=== PATIENT | female | born 1935 | race Caucasian/White ===

== ENCOUNTER 2019-09-01 23:13 | Inpatient (IN) ==
--- NOTE | 2019-09-02 01:19 | EKG Report ---
Test Performed on : 09/01/2019 11:22:51 PM Test Reason : ams Blood Pressure : / mmHG Vent. Rate : 075 BPM Atrial Rate : 075 BPM P-R Int : 202 ms QRS Dur : 130 ms QT Int : 406 ms P-R-T Axes : 056 069 046 degrees QTc Int : 453 ms Sinus rhythm. with premature atrial complexes. Right bundle branch block Abnormal ECG When compared with ECG of 31-AUG-2019 13:09, (Unconfirmed) No significant change was found Unconfirmed Result
[2019-09-02 01:30] LABS: BASO# 0.04 X1000 (0.0-0.2); BASO% 0.3 % (0.0-0.8); EOS# 0.12 X1000 (0.0-0.7); HEMATOCRIT 38.6 % (37.0-47.0); HEMOGLOBIN 13.1 g/dL (12.0-16.0); IMM GRAN# 0.04 X1000 (0.0-0.04); IMM GRAN% 0.3 % (0.0-0.5); LYMPH# 1.45 X1000 (1.2-3.4); LYMPH% 11.5 % (20.5-51.1); MCH 27.2 PG (27-31); MCHC 33.9 g/dL (33-37); MCV 80.1 FL (81-99); MONO# 0.74 X1000 (0.11-0.59); MONO% 5.9 % (1.7-9.3); MPV 8.6 FL (7.4-10.4); NEUT# 10.22 X1000 (1.4-6.5); PLT 338 X1000 (130-400); RBC 4.82 XMIL (4.2-5.4); RDW 14.5 % (11.5-14.5); WBC 12.61 X1000 (4.8-10.8)
--- NOTE | 2019-09-02 01:33 | PROVIDER DOCUMENTATION ---
This chart was entered by Qian Lyons Scribe, acting as scribe for Tiara Montemayor MD. HPI-General Adult - General Chief Complaint: Stroke-Like Symptoms Stated Complaint: HIGH B/P, SLURRED SPEECH (DX'D WITH TIA YEST) Time Seen by Provider: 09/02/19 00:27 Source: patient, family () Allergies/Adverse Reactions: Patient Allergies Allergy/AdvReac Type Severity Reaction Status Date / Time No Known Allergies Allergy Verified 09/02/19 00:53 Home Medications: Home Medication List Medication Instructions Recorded Confirmed Last Taken Type Calcium Citrate/Vitamin D 1 each PO DAILY 09/05/13 09/02/19 1 Day Ago History [Citracal + D] ~08/30/19 Exenatide Microspheres [Bydureon] 2 mg SQ EDGAR 09/05/13 09/02/19 08/27/19 History Glucosamine 500 mg PO DAILY 09/05/13 09/02/19 1 Day Ago History ~08/30/19 Metformin [Glucophage] 1,000 mg PO BID 09/05/13 09/02/19 08/31/19 History Multivit-Min/FA/Lycopene/Lut 1 each PO DAILY 09/05/13 09/02/19 1 Day Ago History [Centrum Silver Tablet] ~08/30/19 Cetirizine [Zyrtec] 10 mg PO DAILY 10/02/13 09/02/19 08/31/19 History Alendronate Sodium 70 mg PO DIRECTED 08/31/19 09/02/19 08/27/19 History Anastrozole 1 mg PO QHS 08/31/19 09/02/19 1 Day Ago History ~08/30/19 Apixaban [Eliquis] 5 mg PO BID 08/31/19 09/02/19 08/31/19 History Clonidine HCl 0.1 mg PO BID #60 tab 08/31/19 09/02/19 Unknown Rx ENALApril [Vasotec] 5 mg PO BID 08/31/19 09/02/19 08/31/19 History Metoprolol Succinate E.r. [Toprol 100 mg PO BID 08/31/19 09/02/19 08/31/19 History Xl] - History of Present Illness -Gen Adult Nature of Presenting Problems: Pt is an 84 yowf brought into the ED today after her B/P has gone up and down for several days. Pt was seen in the ED yesterday with high B/P and similar symptoms. Pt's says that pt was given Clonidine to help control the B/P but this afternoon pt's B/P went up to 203 and she took the medicine and had an episode of confusion and agitation with slurred speech. Pt states that she just does not feel like herslve and she is n/v. Pt is alert and nontoxic in appearance. Location of Pain/Injury: reports: none Pain Radiation: reports: no radiation Quality of Pain: reports: none Severity: reports: moderate Onset/Duration: reports: 24 hours ago (B/P went over 200/), 4 days ago (B/P started going up into the 170/) Timing: reports: still present Context/Activities at Onset: reports: light activity Modifying Factors: improves with: other medication (Clonidine brought B/P down but it goes back up) Associated Symptoms: reports: fever/chills (pt states she is cold), nausea, vomiting. denies: chest pain, cough, shortness of breath Similar Symptoms Previously?: Yes Recently seen or treated by another doctor?: Yes (seen in ED by Dr. Aranda 08/31/2019) Review of Systems - Adult - REVIEW OF SYSTEMS - ADULT Constitutional: reports: see HPI, chills. denies: fever Eyes: reports: no symptoms reported Ears, Nose, Mouth & Throat: reports: no symptoms reported Cardiovascular: reports: see HPI. denies: chest pain, syncope Respiratory: denies: cough, shortness of breath Gastrointestinal: reports: no symptoms reported Genitourinary: reports: no symptoms reported Musculoskeletal: reports: no symptoms reported Integumentary: reports: no symptoms reported Neurological: reports: see HPI, slurred speech. denies: syncope Psychiatric: reports: no symptoms reported Endocrine: reports: no symptoms reported Hematologic/Lymphatic: reports: no symptoms reported Allergic/Immunologic: reports: no symptoms reported All Other Systems: Reviewed and Negative Past History - Adult - PAST MEDICAL HISTORY-ADULT Review of Records: reports: Old Records Reviewed, Nursing Assessment Review, Medications Reviewed, Social history reviewed & non-contributory. Major Childhood Illnesses: reports: denies history Cardiovascular: reports: A-Fib, HTN Respiratory: reports: denies history Gastrointestinal: reports: denies history Genitourinary: reports: denies history Musculoskeletal: reports: denies history Neurological: reports: denies history Endocrine/Immune: reports: denies history, Diabetes Other Conditions: reports: other cancer (breast) - PRIOR SURGERIES/PROCEDURES Surgical/Procedure History: reports: hernia repair - IMMUNIZATION STATUS Childhood Immunizations: See Nurse Assessment Flu Vaccine: See Nurse Assessment - FAMILY HISTORY Family History: reviewed, not pertinent - SOCIAL HISTORY Smoking: denies Substance Use: denies Living Situation: family () Physical Exam-General - PHYSICAL EXAM-ADULT Initial Vital Signs Reviewed: Yes - CONSTITUTIONAL General Appearance: appears well, alert, no apparent distress - EYES Eyes: PERRL/EOMI, pink conjunctivae - HEAD, EARS, NOSE, MOUTH & THROAT HENMT: normocephalic/atraumatic, moist mucous membranes, normal ENT inspection - NECK Neck: non-tender, full range of motion, supple, normal inspection - RESPIRATORY Respiratory: chest non-tender, lungs clear, normal breath sounds, no pleuratic chest pain, no respiratory distress - CARDIOVASCULAR Cardiovascular: normal peripheral pulses, regular rate, rhythm - GASTROINTESTINAL (ABDOMEN) Abdominal Exam: normal bowel sounds, non tender, soft - MUSCULOSKELETAL Back Exam: normal inspection, no CVA tenderness, no vertebral tenderness Extremity: normal range of motion, non-tender, normal gait, normal inspection, no pedal edema - SKIN Integumentary: normal color, normal turgor, warm/dry - PSYCHIATRIC Psych/Mental Status: normal mood/affect, normal thought content, normal thought process, oriented x 3 Progress - PLAN OF CARE/RESULTS Progress/Plan/Lab Results: Vital Signs - 8 hr 09/01/19 23:16 Temperature 98.9 F Pulse Rate 79 Respiratory Rate 15 Blood Pressure 176/98 O2 Sat by Pulse Oximetry 97 Laboratory Results - last 24 hr 09/01/19 23:33 POC Glucose 104 Orders Category Date Time Status Cardiac Monitoring DIRECTED Care 09/01/19 23:39 Active Finger Stick Blood Sugar (ED) DIRECTED Care 09/01/19 23:39 Active Misc. NRSG Communication Order DIRECTED Care 09/01/19 23:39 Active Saline Loc NOW Care 09/01/19 23:39 Active CHEST-PORTABLE [RAD] Stat Exams 09/01/19 23:[address] HEAD W/O CONTRAST [CT] Stat Exams 09/01/19 23:39 Taken CBC WITH ELECTRONIC DIFF [HEME] Stat Lab 09/01/19 23:39 Uncollected COMPREHENSIVE METABOLIC PANEL [CHEM] Stat Lab 09/01/19 23:39 Uncollected PROTIME WITH INR [COAG] Stat Lab 09/01/19 23:39 Uncollected PTT [COAG] Stat Lab 09/01/19 23:39 Uncollected TROPONIN T HIGH SENSITIVITY Stat Lab 09/01/19 23:39 Uncollected URINALYSIS W/POSS RFLX CULT [URINALYSIS] Stat Lab 09/01/19 23:39 Uncollected URINE DRUG SCREEN Stat Lab 09/01/19 23:39 Uncollected EKG [EKG] Stat Ther 09/01/19 23:16 Ordered Result Diagrams: 09/02/19 01:09 - XRAY 1 XRAY Study: Chest Impression: See EMR Report - CT/MRI 1 CT Study: Head Impression: See EMR Report - CONSULTS/PCP/HOSPITALIST Notification #1 *Consult/PCP/Hospitalist*: Dr. Márquez Time Discussed: :32 Consult Disposition: Admit Departure - Departure Date of Disposition Decision: 09/02/19 Time of Disposition Decision: 01:32 DIAGNOSIS: TIA (transient ischemic attack) Disposition: ADMITTED INPATIENT 09 Certified Medical Emergency: Emergent Condition: Stable Referrals and Follow-Ups: Ganga Peguero Jr, MD [Primary Care Provider] - - Critical Care Note This patient required my direct & personal management of CC.: No Attestation - Physician/ LORETO Attestation Patient care was provided by Advanced Practice Provider:: No The physician spent face to face time with patient:: Yes Advanced Practice Provider documentation review:: Supervising physician onsite and consulted in the evaluation and care of this patient. The physician did have a face to face encounter with the patient. This chart was documented by the indicated scribe, (Qian Lyons, Rosalba) and accurately reflects the services I performed and decisions made by me, Tiara Montemayor MD, as attested by the provider's signature.
--- NOTE | 2019-09-02 01:33 | ED EKG INTERP ---
This chart was entered by Qian Lyons Scribe, acting as scribe for Tiara Montemayor MD. EKG Interpretation - EKG Time of EKG reading by physician:: 23:34 EKG Read and Signed by:: Tiara Montemayor EKG Interpretation (*Must complete 3 of following elements*): Abnormal Rate: 75 Rhythm: Sinus rhythm with premature atrial complexes Comments: Right bundle branch block Attestation - Physician/ LORETO Attestation Patient care was provided by Advanced Practice Provider:: No The physician spent face to face time with patient:: Yes Advanced Practice Provider documentation review:: Supervising physician onsite and consulted in the evaluation and care of this patient. The physician did have a face to face encounter with the patient. This chart was documented by the indicated scribe, (Qian Lyons Scribe) and accurately reflects the services I performed and decisions made by me, Tiara Montemayor MD, as attested by the provider's signature.
[2019-09-02 01:39] LABS: INR 1.09; PROTIME 14.3 Seconds (11.0-16.0); PTT 31.1 Seconds (22.3-41.8)
[2019-09-02] MEDS ORDERED: TYLENOL PO PRN (02:41)
[2019-09-02] MEDS ORDERED: APRESOLINE IV PRN (02:41)
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
[2019-09-02 04:32] LABS: URINE SOURCE CLEAN CATCH
[2019-09-02 04:35] LABS: BILIRUBIN URINE NEGATIVE (NEGATIVE); BLOOD URINE NEGATIVE (NEGATIVE); COLOR YELLOW; GLUCOSE URINE NEGATIVE (NEGATIVE); KETONE URINE 20 mg/dL (NEGATIVE); LEUKOCYTES URINE SMALL (NEGATIVE); NITRITE URINE POSITIVE (NEGATIVE); PH URINE 6.5; PROTEIN URINE TRACE mg/dL (NEGATIVE); SP GRAVITY URINE 1.017; TURBIDITY URINE CLEAR (CLEAR); UROBILINOGEN URINE NORMAL (NORMAL)
[2019-09-02 04:37] LABS: UR EPITHELIAL CELLS <10 /HPF (<10); URINE BACTERIA 4+ /HPF; URINE RBC <10 /HPF (<10)
[2019-09-02 04:48] LABS: UR AMPHETAMINES QUAL NONE DETECTED (NONE DETECT); UR BARBITUATES QUAL NONE DETECTED (NONE DETECT); UR BENZODIAZEPIN QUAL NONE DETECTED (NONE DETECT); UR CANNABINOIDS QUAL NONE DETECTED (NONE DETECT); UR COCAINE QUAL NONE DETECTED (NONE DETECT); UR METHADONE QUAL NONE DETECTED (NONE DETECT); UR OPIATES QUAL NONE DETECTED (NONE DETECT); UR OXYCODONE QUAL NONE DETECTED (NONE DETECT); UR PCP QUAL NONE DETECTED (NONE DETECT)
[2019-09-02 05:49] LABS: AGAP 11; ALB/GLOB RATIO 1.4; ALBUMIN 3.6 g/dL (3.5-5.0); ALKALINE PHOSPHATASE 131 U/L (32-104); BUN 18 mg/dL (8-22); CALCIUM 8.7 mg/dL (8.8-10.2); CHLORIDE 94 mmol/L (98-107); COSMO 258; CREATININE 0.6 mg/dL (0.5-0.9); ESTIMATED GFR > 60; GLUCOSE 119 mg/dL (70-104); GOT 13 U/L (10-30); GPT 8 U/L (10-36); POTASSIUM 4.1 mmol/L (3.5-5.1); SODIUM 127 mmol/L (136-145); TCO2 22 mmol/L (25-35); TOTAL BILIRUBIN 0.46 mg/dL (0.20-1.00); TOTAL PROTEIN 6.2 g/dL (6.3-8.3)
[2019-09-02 07:17] LABS: CHOLESTEROL 125 mg/dL (0-200); HDL 50 mg/dL (45-65); LDL 53 mg/dL; TRIGLYCERIDES 110 mg/dL (35-135); VLDL 22 mg/dL
[2019-09-02 07:23] LABS: HEMOGLOBIN A1C 6.2 % (4.8-6.0)
--- NOTE | 2019-09-02 07:44 | Diag Imaging Result Doc PS360 ---
EXAM: CHEST-PORTABLE 09/01/2019 HISTORY: stroke like symptoms TECHNIQUE: AP upright at 2355 COMMENT: There are platelike opacities in both lung bases particularly the left lower lobe. This was also present on 08/31/2019 but is somewhat more prominently seen over the left hemidiaphragm compared to 09/09/2018. The differences may be due to differences in inspiration however. IMPRESSION: Bibasilar fibrotic scars. No evidence of acute disease. Electronically signed by Jw Jimenez 09/02/2019 7:42 AM
--- NOTE | 2019-09-02 08:21 | Diag Imaging Result Doc PS360 ---
EXAM: CT HEAD W/O CONTRAST 09/01/2019 HISTORY: stroke like symptoms TECHNIQUE: This exam was performed using automated exposure control, adjustment of mA or kV according to patient size, and/or use of iterative reconstruction technique. COMMENT: There is no evidence of mass effect, bleed, or abnormal extra-axial fluid collection. Compared to 08/31/2019 there has been no significant change. The calvarium is intact. The visualized paranasal sinuses are clear. IMPRESSION: No evidence of acute intracranial disease, stable since 08/31/2019. Electronically signed by Jw Jimenez 09/02/2019 8:19 AM
[2019-09-02] MEDS: VASOTEC PO SCH ×2 (09:27→21:22)
[2019-09-02] MEDS: ELIQUIS PO SCH ×2 (09:27→21:22)
[2019-09-02] MEDS: ASPIRIN PO SCH (09:27)
[2019-09-02] MEDS: TOPROL XL PO SCH ×2 (09:27→21:22)
[2019-09-02] MEDS: NS 1,000 ML IV SCH ×2 (09:28→21:23)
[2019-09-02] MEDS: ZOFRAN IV PRN ×2 (13:13→17:32)
--- NOTE | 2019-09-02 13:13 | PROGRESS NOTE ---
DATE: 09/02/2019 SUBJECTIVE: The patient is an 84-year-old white female patient of Dr. Peguero, who was admitted early this morning following an episode of difficulty in speech and weakness. She was thought to have had a TIA. Symptoms have resolved by this morning. There is no trouble swallowing. Her speech is normal. Her said she was back to baseline. There is history of hypertension and blood pressure systolic yesterday afternoon went up to the low 200s and she was given clonidine. Improved, but because of her neurologic symptoms, she was brought to the emergency room for evaluation. CT of her head revealed no acute changes. There were no areas of bleeding or mass. She rested fairly well through the night and blood pressure this morning is good. VITAL SIGNS: Temperature 98.2 degrees, heart rate 76, respirations 17, blood pressure 121/52, O2 saturation on room air 96%. LABORATORY: Hemoglobin 13.1, hematocrit 38.6, white blood count 12,600 with normal differential. Sodium 127, potassium 4.1, chloride 94, CO2 22, BUN 18, creatinine 0.6, blood sugar 119. Hemoglobin A1c 6.2, calcium 8.7, alkaline phosphatase 131, total cholesterol 125, LDL 53, HDL 50. PLAN: Ambulate with nursing assistance. MRI and carotid ultrasound are scheduled. EKG showed premature add atrial complexes. She is on Eliquis and low-dose aspirin 81 mg daily is added. cc: MD Ganga Adair Jr, MD
[2019-09-02] MEDS: LIPITOR PO SCH (21:22)
[2019-09-03 07:24] LABS: AGAP 10; ALB/GLOB RATIO 1.4; ALBUMIN 3.4 g/dL (3.5-5.0); ALKALINE PHOSPHATASE 118 U/L (32-104); BUN 9 mg/dL (8-22); CALCIUM 8.5 mg/dL (8.8-10.2); CHLORIDE 103 mmol/L (98-107); COSMO 272; CREATININE 0.6 mg/dL (0.5-0.9); ESTIMATED GFR > 60; GLUCOSE 95 mg/dL (70-104); GOT 13 U/L (10-30); GPT 7 U/L (10-36); POTASSIUM 4.1 mmol/L (3.5-5.1); SODIUM 137 mmol/L (136-145); TCO2 24 mmol/L (25-35); TOTAL BILIRUBIN 0.53 mg/dL (0.20-1.00); TOTAL PROTEIN 5.9 g/dL (6.3-8.3)
[2019-09-03] MEDS: ASPIRIN PO SCH (08:19)
[2019-09-03] MEDS: TOPROL XL PO SCH ×2 (08:19→21:57)
[2019-09-03] MEDS: VASOTEC PO SCH ×2 (08:19→21:56)
[2019-09-03] MEDS: ELIQUIS PO SCH ×2 (08:19→21:57)
--- NOTE | 2019-09-03 08:20 | PROGRESS NOTE ---
DATE: 09/03/2019 Vital signs stable with temperature 98.7 degrees, heart rate 65, respirations 15, blood pressure 146/57, O2 saturation on room air 98%. She has had no further extremity weakness or speech difficulties. Her speech is normal. Chest is clear. PLAN: Ambulate. MRI and carotid ultrasound are planned for tomorrow. cc: MD Ganga Adair Jr, MD
--- NOTE | 2019-09-03 08:26 | ECHO REPORT ---
ORDER DATE: 09/02/2019 INTERPRETING PHYSICIAN: Dr. Samson REQUESTING PHYSICIAN: CLINICAL INDICATIONS: This is an 84-year-old female with TIA, hypertension, diabetes. M-MODE MEASUREMENTS: Right ventricle: cm. Left ventricle end diastole: 4.2 cm. Left ventricle end systole: 3.2 cm. Posterior wall: 0.9 cm. Interventricular septum: 0.9 cm. Left atrium: 3.1 cm. Aortic root: 3.0 cm. SUMMARY OF 2-DIMENSIONAL IMAGIN. The left ventricular function is normal. Ejection fraction is estimated at 68%. There is no wall motion abnormality noted. 2. Aortic valve showed mild degree of sclerosis of the cusps. Color flow mapping is unremarkable. 3. Mitral valve looks normal. Color flow mapping is unremarkable. 4. There is no pericardial effusion, masses or thrombus. 5. Epicardial fat pad is noted. 6. The atria appear to be normal. 7. Right ventricle appears to be normal. 8. This study was requested as a limited study. CONCLUSIONS: In summary, left ventricular function is normal. Ejection fraction is 68%. cc: MD Ganga Dhillon Jr, MD
[2019-09-03] MEDS: NS 1,000 ML IV SCH (14:50)
[2019-09-03] MEDS: LIPITOR PO SCH (21:57)
[2019-09-04] MEDS: NS 1,000 ML IV SCH (05:07)
[2019-09-04] MEDS: ELIQUIS PO SCH ×2 (09:04→21:34)
[2019-09-04] MEDS: TOPROL XL PO SCH ×2 (09:04→21:34)
[2019-09-04] MEDS: ASPIRIN PO SCH (09:04)
[2019-09-04] MEDS: VASOTEC PO SCH ×2 (09:04→21:34)
--- NOTE | 2019-09-04 09:14 | PROGRESS NOTE ---
DATE: 09/04/2019 SUBJECTIVE: The patient says she is feeling better. Does not have the confusion. OBJECTIVE: Vital Signs: Show blood pressure 172/65, respirations 18, pulse 80, temperature 98.2 degrees Fahrenheit. HEENT: She is normocephalic. EOMs intact. PERRLA. Throat clear. Lungs: Clear to auscultation and percussion without rhonchi, rales, or wheezes. Heart: Irregularly irregular without murmurs, gallops, or friction rubs. Abdomen: Soft. Active bowel sounds. No organomegaly or tenderness. Neurologic: Examination intact grossly. ASSESSMENT: 1. Probable cerebrovascular accident. 2. Altered mental status. 3. Urinary tract infection. 4. History of atrial fibrillation. Question about whether she is going in and out of this or whether she has a sinus rhythm with multifocal premature ventricular contractions. PLAN: Will have neurological workup. Please see orders. cc: Ganga Peguero Jr, MD
--- NOTE | 2019-09-04 14:41 | NEUROLOGY CONSULTATION ---
DATE: 09/04/2019 LOCATION: Room 215. HISTORY OF PRESENT ILLNESS: Ms. Son is 84 years old and she has history of possible recent neurologic event. History from the patient is that she remembers talking with a friend 4 days ago and having trouble finding her words. She had a sense that she knew what she wanted to say but just could not make the words come out. She did not have trouble understanding what was said to her. She had a sense of numbness in both hands and a sense of clumsiness in both hands, more noticed on the right, since she is right handed. There was not clear focal motor deficit, facial asymmetry, vision disturbance, headache, or altered consciousness. Symptoms resolved spontaneously without any intervention in an hour or so. She had a little bit of trouble finding words and just did not seem to be herself during the day after that. That resolved spontaneously without focal feature. Later that night, three nights ago, she had trouble moving the bed covers. witnessed this and reports this seemed to involve both arms and there was not a definite focal feature. She presented to the hospital then and was admitted. She has felt well over the last few days here. She seems completely back to baseline now according to patient and to family. On each occasion, during these episodes, blood pressure was checked, sometimes at home and sometimes in the emergency room and, on each occasion, systolic blood pressure was greater than 200. Systolic blood pressures have ranged from 150s to 170s over the last 24 hours. She has been afebrile. Workup here includes noncontrast CT of the head showing nothing remarkable. Brain MRI is on order. Echocardiogram showed no source of embolus. PAST HISTORY: There is past history of hypertension, diabetes mellitus, atrial fibrillation, and remote history of breast cancer. PHYSICAL EXAMINATION: On exam, she is awake, alert, attentive, appropriate, cheerful, and oriented. Speech is not dysarthric. Language function is intact on careful bedside testing. Recent and remote memory are good. Head and neck are unremarkable. Visual mitchell are full. Extraocular movements are full. Pupils react to light. Facial motility is symmetric. Facial sensation is intact to pinprick and light touch testing. Gag is intact. Tongue is midline. She can hear. Shoulder shrug is equal. Strength is normal in the arms and legs. She did well on [id number] testing bilaterally. She reports good pinprick appreciation over the limbs and specifically reports no significant sensory loss over the feet. Proprioception is good at the great toe MTP joint bilaterally. Reflexes are trace at the ankles and 1+ symmetrically at the wrists. Plantar response is silent bilaterally. I did not test her gait. IMPRESSION: A few episodes of word finding problems and possibly at least once or twice sense of difficulty using her hands. This seems to be temporally related to her elevated blood pressure. 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 I encouraged her to continue aggressive management of blood pressure and to follow Dr. Peguero' suggestions. I discussed with patient and family the expected chronic micro ischemic changes likely on MRI. If the MRI does not show a surprise, I will not have anything to add from Neurology standpoint. Thank you for asking Neurology to see Ms. Son. cc: MD Ganga Bullock III, Jr, MD MTDD
--- NOTE | 2019-09-04 15:13 | Diag Imaging Result Doc PS360 ---
EXAM: MRI BRAIN W/WO CONTRAST INDICATION: stroke COMPARISON: CT head dated 09/01/2019. No prior MRI brain is available for comparison. FINDINGS: There is no evidence of acute infarct. There is very minimal patchy T2/FLAIR hyperintensity in the periventricular and subcortical white matter suggesting minimal microangiopathy. There is no discrete intracranial mass, mass effect, or intracranial hemorrhage. There is no evidence of abnormal intracranial enhancement. The surrounding soft tissues and bony structures are essentially unremarkable. 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 No evidence of acute intracranial pathology. Electronically signed by Pawan Green 09/04/2019 3:10 PM
--- NOTE | 2019-09-04 15:31 | Diag Imaging Result Doc PS360 ---
EXAM: MRA BRAIN W/O CONTRAST INDICATION: stroke TECHNIQUE: Three [id number] images and 3-D MIPS were obtained. COMPARISON: None. FINDINGS: There is no evidence of flow-limiting stenosis, vascular malformation, or cerebral aneurysm involving the arteries comprising the [place] including the anterior, middle, and posterior cerebral arteries. The distal ICAs appear widely patent. The right vertebral artery terminates in PICA and there is a origin of the left posterior cerebral artery, both normal variants. The left vertebral artery is unremarkable. The basilar artery is widely patent. IMPRESSION: Essentially normal MRA of the brain. Electronically signed by Pawan Green 09/04/2019 3:29 PM
[2019-09-04] MEDS: PRAVACHOL PO SCH (21:34)
[2019-09-04] MEDS: MACROBID PO SCH (21:34)
--- NOTE | 2019-09-05 04:51 | EKG Report ---
Test Performed on : 09/05/2019 04:34:21 AM Test Reason : rhythm change Blood Pressure : / mmHG Vent. Rate : 070 BPM Atrial Rate : 070 BPM P-R Int : 200 ms QRS Dur : 108 ms QT Int : 426 ms P-R-T Axes : 075 067 062 degrees QTc Int : 460 ms Sinus rhythm. with premature atrial complexes. Right bundle branch block Abnormal ECG When compared with ECG of 01-SEP-2019 23:22, (Unconfirmed) QRS duration has decreased Confirmed by Gabriel GORDON, Sonu Burgos ([id number]) on 09/07/2019 2:32:26 PM
--- NOTE | 2019-09-05 08:05 | PROGRESS NOTE ---
DATE: 09/05/2019 SUBJECTIVE: The patient says she feels better. She had some physical therapy initially, but then felt that she did not need that anymore. Physical Therapy also agreed with that. Has had no more recurrences of the loss of control with the upper extremities. MRI and MRA of the brain appear normal. The patient does have a urinary tract infection with Escherichia coli, and I have started treatment for that. Blood pressure is still elevated, though better at 151/84. OBJECTIVE: Vital Signs: Blood pressure as above, pulse 63 and regular, respirations 23, temperature 97.7 degrees Fahrenheit. HEENT: She is normocephalic. EOMs intact. PERRLA. Throat clear. Lungs: Clear to auscultation and percussion without rhonchi, rales, or wheezes. Heart: Regular rate and rhythm without murmurs, gallops, or friction rubs. Abdomen: Soft. Active bowel sounds. No organomegaly or tenderness. Neurologic: Cranial nerves II through XII are intact grossly. Sensory and motor intact at this point. ASSESSMENT: 1. Questionable transient ischemic attack. No findings of a cerebrovascular accident at this point. Awaiting carotid flow studies. 2. Uncontrolled hypertension with hypertensive emergency, now improved. 3. Urinary tract infection. 4. Diabetes mellitus. 5. History of atrial fibrillation, but seems to be in a sinus rhythm at this time. PLAN: Will watch today. I have increased her enalapril to 20 mg p.o. b.i.d. If blood pressure is stable and she is feeling better, possibly home tomorrow. cc: Ganga Peguero Jr, MD
[2019-09-05] MEDS: MACROBID PO SCH ×2 (08:48→20:23)
[2019-09-05] MEDS: VASOTEC PO SCH ×2 (08:48→20:23)
[2019-09-05] MEDS: ELIQUIS PO SCH ×2 (08:49→20:23)
[2019-09-05] MEDS: TOPROL XL PO SCH ×2 (08:49→20:23)
[2019-09-05] MEDS: ASPIRIN PO SCH (08:49)
--- NOTE | 2019-09-05 09:23 | Carotid Study ---
DATE: 09/02/2019 REQUESTING PROVIDER: CHRISTY Beckwith [employer] MACHINE OPERATOR: Carlos Eduardo. INDICATIONS: TIA. EQUIPMENT: [employer] Vivid E9 ultrasound system with a 9 L-D transducer. FINDINGS: Complete diagram and ultrasound images can be seen scanned in the patient's medical record. The peak systolic velocity noted on the right side is noted in the mid internal carotid artery and is noted to be 59. The peak systolic velocity noted on the left side is noted in the mid internal carotid artery and is noted to be 67. The calculated internal common ratio on the right is 0.65, left 0.75. Calculated stenosis on the right 0 to 39%, left 0 to 39%. There appears to be some atherosclerosis, but at this time it does not produce a hemodynamically significant flow-limiting stenosis. Both vertebral arteries were antegrade flow. INTERPRETATION: By strict velocity criteria, no hemodynamically significant flow-limiting stenosis noted. cc: MD Ganga Weinberg Jr, MD
[2019-09-05] MEDS: PRAVACHOL PO SCH (20:23)
[2019-09-06 07:42] VITALS: BP 142/76
[2019-09-06] MEDS: ELIQUIS PO SCH (09:46)
[2019-09-06] MEDS: ASPIRIN PO SCH (09:46)
[2019-09-06] MEDS: MACROBID PO SCH (09:46)
[2019-09-06] MEDS: TOPROL XL PO SCH (09:46)
[2019-09-06] MEDS: VASOTEC PO SCH (09:47)
--- NOTE | 2019-09-07 07:37 | DISCHARGE SUMMARY ---
ADMISSION DATE: 09/01/2019 DISCHARGE DATE: 09/06/2019 FINAL DIAGNOSES: 1. Urinary tract infection. 2. Hypertension uncontrolled. 3. Altered mental status. SECONDARY DIAGNOSES: 1. Diabetes mellitus. 2. Intermittent atrial fibrillation. 3. History of breast cancer. 4. Peripheral vascular disease. PLAN: We will discharge home on her home medications with the exception that she will stop the clonidine, and will increase her enalapril from 5 mg p.o. b.i.d., up to 20 mg p.o. b.i.d. She will also be on Macrobid 100 mg p.o. b.i.d. for another 7 days for her E. Coli UTI. Consultations were made with Neurology Dr. Fernanda Fuller. When the patient came in, she had some altered mental status and there was some question about her controlling her arms, but it was bilateral. CT scan and then later MRI and MRA scans did not show any acute CVA. This could have been confusion and weakness due to the UTI. The patient was placed on Macrobid and seems to be doing better. She has no more of her symptoms. Her blood pressure which had been very high initially, and she had had some headache with it as it was over 200 is down to 142 systolic. We will continue current medications, and I will be seeing her back in the office on the to recheck her blood pressure and see how she is doing post hospitalization. She does have peripheral vascular disease. Her carotid arteries did show some mild atherosclerotic plaque that was not hemodynamically significant. Because of this, we will place her on pravastatin 20 mg at bedtime. We will check lipids as an outpatient as her lipids though they look normal eye exam, I think the statin would help stabilize the plaque. PHYSICAL EXAMINATION: Vital signs: Blood pressure 142/76, respirations 23, pulse 68, and temperature 97.6 degrees Fahrenheit HEENT: She is normocephalic. EOMs intact. PERRLA. Throat clear. Lungs: Clear to auscultation and percussion without rhonchi, rales, or wheezes. Heart: Regular rate and rhythm without murmurs, gallops, or friction rubs. Abdomen: Soft. Active bowel sounds. No organomegaly or tenderness. Neurologic: Exam intact grossly. cc: Ganga Peguero Jr, MD
== END 2019-09-06 10:47 | disposition home or self-care (01) | DRG 690 ==
LOC: ED 23:13 → 2N 23:14 → SUATTDRO 23:14 → 3N 09-05 21:31
PROVIDERS: ADMIT Emergency Medicine; ATTEND Emergency Medicine